=== PATIENT | female | born 1965 ===

== ENCOUNTER 2019-11-01 08:31 | Observation (INO) ==
[2019-11-01 11:26] LABS: Basophils % 0.8 % (0.0-0.8); Eosinophils # 0.1 10*3/uL (0.0-0.87); Eosinophils % 1.4 % (0.00-10.9); Hematocrit 31.7 VOL% (35.7-47.0); Hemoglobin 10.4 GM/DL (12.0-16.0); Immature Granulocytes % 0.3 %; Immature Granulocytes Absolute 0.01 #; Lymphocytes # 0.9 10*3/uL (1.4-4.0); Mean Corpuscular HGB Conc 32.8 GM/DL (32-36); Mean Corpuscular Volume 103.3 FL (87-102); Mean Platelet Volume 9.4 FL (9.6-12.0); Monocytes % 6.1 % (1.7-12.7); Neutrophils % 65.4 % (38.7-73.9); Platelet Count 112 T/CUMM (130-400); Red Blood Count 3.07 MC/CUMM (3.8-5.5); Red Cell Distribution Width 15.6 % (9.3-17.3); White Blood Count 3.6 T/CUMM (4-12)
[2019-11-01 11:38] LABS: INR 1.4; PT Patient Result 14.8 SECS (9.8-11.9); Partial Thromboplastin Time 29.6 SECS (23.9-33.8)
[2019-11-01 11:55] LABS: Albumin 2.2 G/DL (3.4-5.0); Bilirubin,Total 3.3 MG/DL (0.2-1.0); Calcium 8.2 MG/DL (8.5-10.1); Ferritin 192.6 ng/ml (8-252); Osmolality,Calculated 285.7 MOS/KG (273-304); Total Protein 6.6 G/DL (6.4-8.3)
[2019-11-01] MEDS ORDERED: hydrALAZINE 20 MG/1 ML VIAL IV PRN (11:56)
[2019-11-01] MEDS ORDERED: ACETAMINOPHEN 325 MG TABLET PO PRN (11:56)
[2019-11-01] MEDS ORDERED: DOCUSATE SODIUM 100 MG CAPSULE PO PRN (11:56)
[2019-11-01] MEDS ORDERED: GLUCAGON 1 MG VIAL IM PRN (11:56)
[2019-11-01] MEDS ORDERED: guaiFENesin/DM ER 600-30 MG TABLET PO PRN (11:56)
[2019-11-01] MEDS ORDERED: ONDANSETRON 4 MG/2 ML VIAL IV PRN (11:56)
[2019-11-01] MEDS ORDERED: DEXTROSE 50% 25 GM/50 ML VIAL IV PRN (11:56)
[2019-11-01] MEDS ORDERED: FUROSEMIDE 40 MG/4 ML VIAL IV ONE (12:03)
[2019-11-01 12:25] LABS: Ferritin 181.7 ng/ml (8-252)
[2019-11-01] MEDS ORDERED: cefTRIAXone 1,000 MG in SYRINGE 1 EACH IV SCH (12:30)
[2019-11-01] MEDS ORDERED: AZITHROMYCIN INJ 500 MG in SODIUM CHLORIDE 0.9% 250 ML IV SCH (12:30)
[2019-11-01 12:32] LABS: Risk Ratio 3.15; Thyroid Stimulating Hormone 1.37 uIU/ml (0.358-3.74); VLDL CHOLESTEROL 12.6 MG/DL
[2019-11-01] MEDS ORDERED: AZITHROMYCIN 250 MG TABLET PO SCH (15:00)
[2019-11-01] MEDS ORDERED: WHITE PETROLATUM TOP PRN (15:01)
[2019-11-01] MEDS: INSULIN LISPRO 100 UNIT/ML SUBCUT SCH ×2 (16:09→21:48)
[2019-11-01] MEDS: LACTULOSE 20 GM/30 ML UDCUP PO SCH ×2 (16:33→21:55)
[2019-11-01 17:59] LABS: INR 1.4; PT Patient Result 15.2 SECS (9.8-11.9)
[2019-11-01 18:14] LABS: Apearance,Urine CLEAR (Clear); Bacteria,Urine Occasional /HPF (Few); Bilirubin,Urine Negative (Negative); Blood, Urine Negative (Negative); Glucose,Urine (UA) Negative (Negative); Hyaline Casts,Urine 4 /LPF (0-3); Ketones,Urine Negative (Negative); Mucus,Urine Occasional /LPF (Occasional); Nitrite,Urine Negative (Negative); Protein,Urine Negative; Squamous Epithelial Cell,Urine Occasional /HPF (0-10); Urine Color Yellow (Yellow); Urine Specific Gravity 1.006 (1.001-1.035); Urine Urobilinogen < 2.0 EU/DL (0.2-1.0)
[2019-11-01] MEDS: RIFAXIMIN 550 MG TABLET PO SCH (21:55)
[2019-11-01] MEDS: SPIRONOLACTONE 25 MG TABLET PO SCH (21:55)
[2019-11-01] MEDS: MOMETASONE 220 MCG/PUFF INHALER 14 DOSE INH SCH (21:55)
[2019-11-02] MEDS: LACTULOSE 20 GM/30 ML UDCUP PO SCH ×2 (04:57→08:34)
[2019-11-02 06:11] LABS: Basophils % 0.9 % (0.0-0.8); Eosinophils # 0.2 10*3/uL (0.0-0.87); Eosinophils % 5.4 % (0.00-10.9); Hematocrit 27.4 VOL% (35.7-47.0); Hemoglobin 9.3 GM/DL (12.0-16.0); Immature Granulocytes % 0.2 %; Immature Granulocytes Absolute 0.01 #; Lymphocytes # 1.6 10*3/uL (1.4-4.0); Lymphocytes % 38.2 % (21.3-54.2); Mean Corpuscular HGB Conc 33.9 GM/DL (32-36); Mean Corpuscular Volume 101.1 FL (87-102); Mean Platelet Volume 9.6 FL (9.6-12.0); Monocytes % 9.4 % (1.7-12.7); Neutrophils % 45.9 % (38.7-73.9); Platelet Count 101 T/CUMM (130-400); Red Blood Count 2.71 MC/CUMM (3.8-5.5); Red Cell Distribution Width 15.7 % (9.3-17.3); White Blood Count 4.2 T/CUMM (4-12)
[2019-11-02 06:28] LABS: INR 1.4; PT Patient Result 15.1 SECS (9.8-11.9)
[2019-11-02 06:36] LABS: Hypochromasia 1+
[2019-11-02 06:37] LABS: Albumin 1.9 G/DL (3.4-5.0); Anisocytosis 1+; Bilirubin,Total 3.3 MG/DL (0.2-1.0); Calcium 8.1 MG/DL (8.5-10.1); Macrocytosis 1+; Osmolality,Calculated 284.7 MOS/KG (273-304); Platelet Estimate Decreased; Target Cells Few; Total Protein 5.7 G/DL (6.4-8.3)
[2019-11-02] MEDS: SPIRONOLACTONE 25 MG TABLET PO SCH (08:34)
[2019-11-02] MEDS: INSULIN LISPRO 100 UNIT/ML SUBCUT SCH ×2 (08:34→12:37)
[2019-11-02] MEDS: RIFAXIMIN 550 MG TABLET PO SCH (08:34)
[2019-11-02] MEDS ORDERED: ASCORBIC ACID 500 MG TABLET PO SCH (09:00)
[2019-11-02] MEDS ORDERED: ZINC SULFATE 220 MG CAPSULE PO SCH (09:00)
[2019-11-02] MEDS ORDERED: PANTOPRAZOLE 40 MG TABLET PO SCH (09:00)
[2019-11-02] MEDS: MOMETASONE 220 MCG/PUFF INHALER 14 DOSE INH SCH (11:12)
[2019-11-02 11:30] VITALS: BP 162/87
== END 2019-11-02 13:56 | disposition home or self-care (01) ==
LOC: EDUNIT# → EDBD → N.ED 08:31 → INTOOBSV 11:42 → N.EDINP 11:42 → N.2E 13:11
PROVIDERS: ADMIT Internal Medicine; ATTEND Internal Medicine

== ENCOUNTER 2020-01-05 02:22 | Inpatient (IN) ==
[2020-01-05] MEDS ORDERED: SODIUM CHLORIDE 0.9% 1,000 ML IV SCH (04:30)
[2020-01-05 05:15] LABS: ABG Base Excess -4.7 MMOL/L (-2.5-2.5); ABG HCO3 20.5 MMOL/L (20-26); ABG PCO2 29.7 MM HG (35-48); ABG PH 7.413 (7.35-7.45); ABG PO2 81.4 MM HG (80-95); ABG TCO2 17.2 MMOL/L (23-27); Allen Test Positive; Pt O2 Delivery Device Room Air
[2020-01-05 05:54] LABS: Barbiturates Screen,Urine Negative (Negative); Benzodiazepines Screen,Urine Negative (Negative); Cannabinoid Screen,Urine Negative (Negative); Opiate Screen,Urine Negative (Negative); Phencyclidine Screen,Urine Negative (Negative)
[2020-01-05 06:05] LABS: Basophils # 0.1 10*3/uL (0.0-0.2); Basophils % 0.4 % (0.0-0.8); Immature Granulocytes % 0.4 %; Immature Granulocytes Absolute 0.07 #; Lymphocytes # 0.5 10*3/uL (1.4-4.0); Lymphocytes % 3.1 % (21.3-54.2); Mean Corpuscular HGB Conc 33.3 GM/DL (32-36); Mean Corpuscular Volume 101.5 FL (87-102); Mean Platelet Volume 9.5 FL (9.6-12.0); Monocytes % 2.2 % (1.7-12.7); Neutrophils % 93.9 % (38.7-73.9); Platelet Count 81 T/CUMM (130-400); Red Blood Count 3.25 MC/CUMM (3.8-5.5); Red Cell Distribution Width 17.2 % (9.3-17.3)
[2020-01-05 06:17] LABS: Alanine Aminotransferase 45 U/L (13-56); Albumin 1.9 G/DL (3.4-5.0); Alkaline Phosphatase 145 U/L (45-117); Aspartate Amino Transferase 64 U/L (0-37); Blood Urea Nitrogen 18 MG/DL (7-18); Calcium 7.7 MG/DL (8.5-10.1); Estimated Glom Filtration Rate 38 ML/MIN; Glucose 91 MG/DL (74-106); Total Protein 6.6 G/DL (6.4-8.3)
[2020-01-05] MEDS ORDERED: ONDANSETRON 4 MG/2 ML VIAL IV PRN (06:21)
[2020-01-05] MEDS ORDERED: PROMETHAZINE 25 MG/1 ML VIAL IM PRN (06:21)
[2020-01-05] MEDS ORDERED: SODIUM CHLORIDE 0.9% 3,000 ML IV ONE (06:23)
[2020-01-05] MEDS ORDERED: LACTATED RINGERS 1,000 ML IV ONE (06:23)
[2020-01-05] MEDS ORDERED: ALBUMIN 5% 25 GM in PREMIX 1 EACH IV ONE (06:23)
[2020-01-05 06:46] LABS: Lymphocytes 3 % (20-55); Total Cells Counted 100
[2020-01-05 06:47] LABS: Anisocytosis 2+; Band Neutrophils 16 % (0-10); Hypochromasia 2+; Macrocytosis 2+; Metamyelocytes 15 %; Platelet Estimate Decreased; Segmented Neutrophils 64 % (50-85)
[2020-01-05 07:21] LABS: Apearance,Urine Slightly Hazy (Clear); Bacteria,Urine Occasional /HPF (Few); Blood, Urine Large mg/dL (Negative); Glucose,Urine (UA) Negative (Negative); Hyaline Casts,Urine 30 /LPF (0-3); Ketones,Urine Negative (Negative); Mucus,Urine Few /LPF (Occasional); Nitrite,Urine Negative (Negative); Protein,Urine 30 MG/DL; RBC,Urine 39 /HPF (0-4); Urine Color Amber (Yellow); WBC,Urine 4 /HPF (0-6)
[2020-01-05 07:22] LABS: Bilirubin,Urine Small mg/dL (Negative)
[2020-01-05] MEDS ORDERED: PIPERACILLIN/TAZOBACTAM 3,375 MG in SODIUM CHLORIDE 0.9% 100 ML IV SCH (07:30)
[2020-01-05] MEDS: PANTOPRAZOLE 40 MG VIAL IV SCH (08:21)
[2020-01-05] MEDS: ENOXAPARIN 40 MG/0.4 ML SYRINGE SUBCUT SCH (08:21)
[2020-01-05] MEDS: MEROPENEM 500 MG in SODIUM CHLORIDE 0.9% 100 ML IV SCH ×2 (08:21→16:30)
[2020-01-05] MEDS ORDERED: ALBUMIN 5% 12.5 GM/250 ML VIAL IV ONE (08:37)
[2020-01-05] MEDS: VANCOMYCIN INJ 1,500 MG in SODIUM CHLORIDE 0.9% 250 ML IV SCH (09:40)
[2020-01-05] MEDS: LACTULOSE 20 GM/30 ML UDCUP PO SCH ×2 (12:17→17:30)
[2020-01-05] MEDS ORDERED: ALBUMIN 25% 50 GM in PREMIX 1 EACH IV ONE (15:00)
[2020-01-05] MEDS: SODIUM BICARB INJ 50 MEQ in SODIUM CHLORIDE 0.45% 1,000 ML IV SCH (16:11)
[2020-01-05] MEDS ORDERED: LACTULOSE 20 GM/30 ML UDCUP PO SCH (21:00)
[2020-01-05] MEDS: SPIRONOLACTONE 25 MG TABLET PO SCH (21:29)
[2020-01-05] MEDS: RIFAXIMIN 550 MG TABLET PO SCH (21:29)
[2020-01-06] MEDS: LACTULOSE 20 GM/30 ML UDCUP PO SCH ×3 (01:06→21:40)
[2020-01-06] MEDS: MEROPENEM 500 MG in SODIUM CHLORIDE 0.9% 100 ML IV SCH ×2 (01:07→09:08)
[2020-01-06] MEDS: SODIUM BICARB INJ 50 MEQ in SODIUM CHLORIDE 0.45% 1,000 ML IV SCH ×3 (01:19→14:34)
[2020-01-06 04:13] LABS: Basophils # 0.1 10*3/uL (0.0-0.2); Basophils % 0.5 % (0.0-0.8); Eosinophils % 0.1 % (0.00-10.9); Hematocrit 26.5 VOL% (35.7-47.0); Hemoglobin 8.9 GM/DL (12.0-16.0); Immature Granulocytes % 1.3 %; Lymphocytes # 0.8 10*3/uL (1.4-4.0); Lymphocytes % 5.4 % (21.3-54.2); Mean Corpuscular HGB Conc 33.6 GM/DL (32-36); Mean Corpuscular Volume 99.3 FL (87-102); Mean Platelet Volume 10.4 FL (9.6-12.0); Monocytes % 3.5 % (1.7-12.7); Neutrophils % 89.2 % (38.7-73.9); Platelet Count 57 T/CUMM (130-400); Red Blood Count 2.67 MC/CUMM (3.8-5.5); Red Cell Distribution Width 17.3 % (9.3-17.3); White Blood Count 14.9 T/CUMM (4-12)
[2020-01-06 04:28] LABS: Albumin 2.8 G/DL (3.4-5.0); Bilirubin,Total 5.4 MG/DL (0.2-1.0); Calcium 7.2 MG/DL (8.5-10.1); Osmolality,Calculated 281.4 MOS/KG (273-304); Total Protein 6.2 G/DL (6.4-8.3)
[2020-01-06 04:37] LABS: Band Neutrophils 15 % (0-10); Lymphocytes 4 % (20-55); Metamyelocytes 3 %; Myelocytes 1 %; Platelet Estimate Decreased; Segmented Neutrophils 77 % (50-85); Total Cells Counted 100
[2020-01-06 04:38] LABS: Hypochromasia Slight
[2020-01-06] MEDS ORDERED: MAGNESIUM SULF RIDER 2 GM in PREMIX 1 EACH IV ONE (07:54)
[2020-01-06] MEDS: VANCOMYCIN INJ 1,500 MG in SODIUM CHLORIDE 0.9% 250 ML IV SCH (09:19)
[2020-01-06] MEDS: FONDAPARINUX 2.5 MG/0.5 ML SYRINGE SUBCUT SCH (09:20)
[2020-01-06] MEDS: SPIRONOLACTONE 25 MG TABLET PO SCH ×2 (09:20→21:41)
[2020-01-06] MEDS: RIFAXIMIN 550 MG TABLET PO SCH ×2 (09:20→21:40)
[2020-01-06] MEDS: PANTOPRAZOLE 40 MG VIAL IV SCH (09:20)
[2020-01-06] MEDS: ENOXAPARIN 40 MG/0.4 ML SYRINGE SUBCUT SCH (09:27)
[2020-01-06] MEDS ORDERED: cefTRIAXone 1,000 MG in SYRINGE 1 EACH IV SCH (10:30)
[2020-01-06] MEDS: ceFAZolin 1,000 MG in SYRINGE 1 EACH IV SCH (21:39)
[2020-01-06] MEDS: CALCIUM (CARBONATE)/VITAMIN D 600 MG-400 UNIT TABLET PO SCH (21:40)
[2020-01-07] MEDS: SODIUM BICARB INJ 50 MEQ in SODIUM CHLORIDE 0.45% 1,000 ML IV SCH ×3 (01:32→14:11)
[2020-01-07] MEDS: ceFAZolin 1,000 MG in SYRINGE 1 EACH IV SCH ×4 (03:37→20:51)
[2020-01-07 05:25] LABS: Basophils % 0.3 % (0.0-0.8); Eosinophils # 0.1 10*3/uL (0.0-0.87); Hematocrit 25.8 VOL% (35.7-47.0); Hemoglobin 8.8 GM/DL (12.0-16.0); Immature Granulocytes % 1.7 %; Immature Granulocytes Absolute 0.24 #; Lymphocytes # 1.1 10*3/uL (1.4-4.0); Lymphocytes % 7.6 % (21.3-54.2); Mean Corpuscular HGB Conc 34.1 GM/DL (32-36); Mean Corpuscular Volume 98.9 FL (87-102); Monocytes % 5.9 % (1.7-12.7); Neutrophils % 83.5 % (38.7-73.9); Red Blood Count 2.61 MC/CUMM (3.8-5.5); Red Cell Distribution Width 16.4 % (9.3-17.3); White Blood Count 13.9 T/CUMM (4-12)
[2020-01-07 05:41] LABS: Platelet Count 55 T/CUMM (130-400)
[2020-01-07 05:54] LABS: Band Neutrophils 2 % (0-10); Hypochromasia 1+; Lymphocytes 8 % (20-55); Platelet Estimate Decreased; Segmented Neutrophils 88 % (50-85); Total Cells Counted 100
[2020-01-07 06:04] LABS: Albumin 2.3 G/DL (3.4-5.0); Bilirubin,Total 4.2 MG/DL (0.2-1.0); Calcium 7.1 MG/DL (8.5-10.1); Total Protein 5.9 G/DL (6.4-8.3)
[2020-01-07] MEDS: LACTULOSE 20 GM/30 ML UDCUP PO SCH ×3 (08:19→20:54)
[2020-01-07] MEDS: PANTOPRAZOLE 40 MG VIAL IV SCH (08:20)
[2020-01-07] MEDS: FONDAPARINUX 2.5 MG/0.5 ML SYRINGE SUBCUT SCH (08:20)
[2020-01-07] MEDS: SPIRONOLACTONE 25 MG TABLET PO SCH ×2 (08:20→20:54)
[2020-01-07] MEDS: RIFAXIMIN 550 MG TABLET PO SCH ×2 (08:20→20:54)
[2020-01-07] MEDS: CALCIUM (CARBONATE)/VITAMIN D 600 MG-400 UNIT TABLET PO SCH ×2 (08:20→20:54)
[2020-01-07] MEDS ORDERED: POTASSIUM CHLORIDE 20 MEQ TABLET PO ONE (09:21)
[2020-01-08] MEDS: ceFAZolin 1,000 MG in SYRINGE 1 EACH IV SCH ×4 (01:41→20:59)
[2020-01-08 05:02] LABS: Basophils # 0.1 10*3/uL (0.0-0.2); Basophils % 0.7 % (0.0-0.8); Eosinophils # 0.2 10*3/uL (0.0-0.87); Eosinophils % 2.2 % (0.00-10.9); Immature Granulocytes % 7.3 %; Immature Granulocytes Absolute 0.63 #; Lymphocytes # 1.4 10*3/uL (1.4-4.0); Lymphocytes % 16.5 % (21.3-54.2); Mean Corpuscular HGB Conc 34.6 GM/DL (32-36); Mean Corpuscular Volume 95.9 FL (87-102); Mean Platelet Volume 10.5 FL (9.6-12.0); Monocytes % 13.6 % (1.7-12.7); Neutrophils % 59.7 % (38.7-73.9); Platelet Count 59 T/CUMM (130-400); Red Blood Count 2.71 MC/CUMM (3.8-5.5); Red Cell Distribution Width 16.4 % (9.3-17.3); White Blood Count 8.7 T/CUMM (4-12)
[2020-01-08 05:18] LABS: Osmolality,Calculated 277.7 MOS/KG (273-304)
[2020-01-08 05:33] LABS: Band Neutrophils 3 % (0-10); Eosinophils 5 % (0-10); Hypochromasia Slight; Lymphocytes 14 % (20-55); Nucleated Red Blood Cells 1 (0-5); Platelet Estimate Decreased; Segmented Neutrophils 72 % (50-85); Total Cells Counted 100
[2020-01-08] MEDS: LACTULOSE 20 GM/30 ML UDCUP PO SCH ×2 (09:14→21:00)
[2020-01-08] MEDS: SPIRONOLACTONE 25 MG TABLET PO SCH ×2 (09:14→21:00)
[2020-01-08] MEDS: CALCIUM (CARBONATE)/VITAMIN D 600 MG-400 UNIT TABLET PO SCH ×2 (09:14→21:00)
[2020-01-08] MEDS: PANTOPRAZOLE 40 MG VIAL IV SCH (09:14)
[2020-01-08] MEDS: RIFAXIMIN 550 MG TABLET PO SCH ×2 (09:14→21:00)
[2020-01-08] MEDS: FONDAPARINUX 2.5 MG/0.5 ML SYRINGE SUBCUT SCH (09:15)
[2020-01-08] MEDS: SODIUM BICARB INJ 50 MEQ in SODIUM CHLORIDE 0.45% 1,000 ML IV SCH (11:51)
[2020-01-08] MEDS ORDERED: POTASSIUM CHLORIDE 20 MEQ TABLET PO ONE (13:06)
[2020-01-09] MEDS: ceFAZolin 1,000 MG in SYRINGE 1 EACH IV SCH ×3 (02:09→16:12)
[2020-01-09 06:16] LABS: Basophils % 0.1 % (0.0-0.8); Eosinophils # 0.3 10*3/uL (0.0-0.87); Eosinophils % 3.5 % (0.00-10.9); Hematocrit 27.1 VOL% (35.7-47.0); Hemoglobin 9.6 GM/DL (12.0-16.0); Immature Granulocytes % 16.2 %; Immature Granulocytes Absolute 1.49 #; Lymphocytes # 1.8 10*3/uL (1.4-4.0); Mean Corpuscular HGB Conc 35.4 GM/DL (32-36); Mean Corpuscular Volume 95.4 FL (87-102); Mean Platelet Volume 11.5 FL (9.6-12.0); Monocytes % 16.7 % (1.7-12.7); NRBC # 0.03 10*3/uL; Neutrophils % 43.5 % (38.7-73.9); Red Blood Count 2.84 MC/CUMM (3.8-5.5); Red Cell Distribution Width 16.4 % (9.3-17.3); White Blood Count 9.2 T/CUMM (4-12)
[2020-01-09 06:21] LABS: Platelet Count 55 T/CUMM (130-400)
[2020-01-09 06:34] LABS: Calcium 7.7 MG/DL (8.5-10.1); Osmolality,Calculated 269.1 MOS/KG (273-304)
[2020-01-09 06:48] LABS: Band Neutrophils 1 % (0-10); Eosinophils 4 % (0-10); Hypochromasia 1+; Lymphocytes 20 % (20-55); Platelet Estimate Decreased; Segmented Neutrophils 59 % (50-85); Target Cells Few; Total Cells Counted 100
[2020-01-09] MEDS: CALCIUM (CARBONATE)/VITAMIN D 600 MG-400 UNIT TABLET PO SCH (08:45)
[2020-01-09] MEDS: SPIRONOLACTONE 25 MG TABLET PO SCH (08:45)
[2020-01-09] MEDS: PANTOPRAZOLE 40 MG VIAL IV SCH (08:45)
[2020-01-09] MEDS: RIFAXIMIN 550 MG TABLET PO SCH (08:45)
[2020-01-09] MEDS: LACTULOSE 20 GM/30 ML UDCUP PO SCH (08:45)
[2020-01-09] MEDS: FONDAPARINUX 2.5 MG/0.5 ML SYRINGE SUBCUT SCH (08:46)
[2020-01-09 11:54] VITALS: BP 154/63
== END 2020-01-09 16:16 | disposition home health service (06) | DRG 871 ==
LOC: SUATTDRO 03:41 → N.ICU 03:41 → N.5E 01-06 15:30
PROVIDERS: ADMIT Internal Medicine; ATTEND Family Medicine

== ENCOUNTER 2020-03-20 20:15 | Observation (INO) ==
[2020-03-20] MEDS ORDERED: DEXTROSE 50% 25 GM/50 ML VIAL IV PRN (23:25)
[2020-03-20] MEDS ORDERED: GLUCAGON 1 MG VIAL IM PRN (23:25)
[2020-03-20] MEDS ORDERED: SKIN HEALING OINT (AQUAPHOR) 50 GM TUBE TOP PRN (23:38)
[2020-03-20] MEDS ORDERED: LACTULOSE 20 GM/30 ML UDCUP PO ONE (23:57)
[2020-03-21 06:42] LABS: Basophils # 0.1 10*3/uL (0.0-0.2); Basophils % 1.3 % (0.0-0.8); Eosinophils # 0.2 10*3/uL (0.0-0.87); Eosinophils % 5.1 % (0.00-10.9); Hematocrit 23.3 VOL% (35.7-47.0); Hemoglobin 7.5 GM/DL (12.0-16.0); Immature Granulocytes % 1.1 %; Immature Granulocytes Absolute 0.05 #; Lymphocytes # 1.3 10*3/uL (1.4-4.0); Lymphocytes % 28.6 % (21.3-54.2); Mean Corpuscular HGB Conc 32.2 GM/DL (32-36); Mean Corpuscular Volume 107.4 FL (87-102); Mean Platelet Volume 9.1 FL (9.6-12.0); Monocytes % 10.9 % (1.7-12.7); Red Blood Count 2.17 MC/CUMM (3.8-5.5); Red Cell Distribution Width 14.6 % (9.3-17.3); White Blood Count 4.5 T/CUMM (4-12)
[2020-03-21 06:43] LABS: Platelet Count 100 T/CUMM (130-400)
[2020-03-21 07:00] LABS: Hypochromasia 1+
[2020-03-21 07:01] LABS: Macrocytosis Slight; Platelet Estimate Decreased; Target Cells Slight
[2020-03-21 07:10] LABS: Albumin 1.8 G/DL (3.4-5.0); Bilirubin,Total 4.3 MG/DL (0.2-1.0); Calcium 8.2 MG/DL (8.5-10.1); Osmolality,Calculated 288.6 MOS/KG (273-304); Total Protein 5.6 G/DL (6.4-8.3)
[2020-03-21] MEDS: SPIRONOLACTONE 25 MG TABLET PO SCH ×2 (09:11→21:49)
[2020-03-21] MEDS: RIFAXIMIN 550 MG TABLET PO SCH ×2 (09:11→21:49)
[2020-03-21] MEDS: LACTULOSE 20 GM/30 ML UDCUP PO SCH ×2 (09:11→21:48)
[2020-03-21] MEDS: CALCIUM (CARBONATE)/VITAMIN D 600 MG-400 UNIT TABLET PO SCH ×2 (09:11→21:48)
[2020-03-21] MEDS: INSULIN REGULAR 100 UNIT/ML SUBCUT SCH ×4 (09:12→21:50)
[2020-03-21] MEDS: DEXTROSE 5% NACL 0.45% 500 ML IV SCH ×2 (13:18→21:49)
[2020-03-21] MEDS: MOMETASONE 220 MCG/PUFF INHALER 14 DOSE INH SCH ×2 (16:33→21:49)
[2020-03-22] MEDS: DEXTROSE 5% NACL 0.45% 500 ML IV SCH ×2 (03:58→09:58)
[2020-03-22 05:46] LABS: Basophils # 0.1 10*3/uL (0.0-0.2); Basophils % 1.5 % (0.0-0.8); Eosinophils # 0.3 10*3/uL (0.0-0.87); Eosinophils % 7.1 % (0.00-10.9); Hemoglobin 7.6 GM/DL (12.0-16.0); Immature Granulocytes % 1.1 %; Immature Granulocytes Absolute 0.05 #; Lymphocytes # 1.6 10*3/uL (1.4-4.0); Lymphocytes % 34.6 % (21.3-54.2); Mean Corpuscular HGB Conc 31.7 GM/DL (32-36); Mean Corpuscular Volume 109.1 FL (87-102); Mean Platelet Volume 9.4 FL (9.6-12.0); Monocytes % 10.2 % (1.7-12.7); Neutrophils % 45.5 % (38.7-73.9); Red Cell Distribution Width 14.5 % (9.3-17.3); White Blood Count 4.6 T/CUMM (4-12)
[2020-03-22 05:48] LABS: Platelet Count 95 T/CUMM (130-400)
[2020-03-22 06:13] LABS: Hypochromasia 2+
[2020-03-22 06:14] LABS: Macrocytosis Slight; Platelet Estimate Decreased
[2020-03-22 06:34] LABS: Folate 7.6 NG/ML (5.4-24.0)
[2020-03-22 06:40] LABS: Albumin 1.9 G/DL (3.4-5.0); Bilirubin,Total 4.5 MG/DL (0.2-1.0); Calcium 8.2 MG/DL (8.5-10.1); Total Protein 5.8 G/DL (6.4-8.3)
[2020-03-22] MEDS: INSULIN REGULAR 100 UNIT/ML SUBCUT SCH ×2 (08:10→11:32)
[2020-03-22] MEDS: SPIRONOLACTONE 25 MG TABLET PO SCH (09:26)
[2020-03-22] MEDS: CALCIUM (CARBONATE)/VITAMIN D 600 MG-400 UNIT TABLET PO SCH (09:26)
[2020-03-22] MEDS: MOMETASONE 220 MCG/PUFF INHALER 14 DOSE INH SCH (09:27)
[2020-03-22] MEDS: RIFAXIMIN 550 MG TABLET PO SCH (09:27)
[2020-03-22] MEDS: LACTULOSE 20 GM/30 ML UDCUP PO SCH (09:27)
[2020-03-22 12:56] VITALS: BP 143/65
== END 2020-03-22 13:39 | disposition home or self-care (01) ==
LOC: N.TELES
PROVIDERS: ADMIT Internal Medicine; ATTEND Internal Medicine